=== PATIENT | female | born 1970 | race Caucasian/White ===

== ENCOUNTER 2024-12-10 14:28 | Outpatient (AMB) | payer BC, SELFPAY ==
[2024-12-10 15:09] VITALS: BP 129/72; PULSE 73; RESP 14; TEMP 36.2; O2SAT 97; BMI 21.0
--- NOTE | 2024-12-10 15:09 | AMB.GYNCLNOT ---
Vital Signs 12/10/24 15:09 Height 1.57 m Height Method Stated Weight 52.22 kg Weight Measurement Method Standing Scale BMI 21.0 BP 129/72 Blood Pressure Source Automatic Cuff Blood Pressure Location Right Upper Arm Position Sitting Respiration 14 Pulse 73 Pulse Source Monitor Temp 97.1 F Temp Source Oral Pulse Oximetry (%) 97 Oxygen Delivery Method Room Air Allergies/Home Meds Allergies & Medications Allergies No Known Allergies Allergy (Verified 12/10/24 15:10) Medication Reconciliation bupropion HCl 300 mg 24 hr tablet, extended release 300 mg PO QAM 12/10/24 [History Confirmed 12/10/24] levothyroxine 75 mcg tablet (Synthroid) 75 mcg PO QDAY 12/10/24 [History Confirmed 12/10/24] liothyronine 5 mcg tablet 5 mcg PO QDAY 12/10/24 [History Confirmed 12/10/24] progesterone micronized 200 mg capsule (Prometrium) 200 mg PO QHS 12/16/24 [History] Intake Visit Data Collection New Patient or Established: Established Patient (seen at [facility] within 3 years) Reason for Visit:: POSTMENOPAUSAL BLEEDING Seen by Clinical Staff ONLY (RN/MA): No 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 Do You Feel Safe at Home: Yes Authorities Contacted: N/A PCP or OBGYN visit in last 3 months: Yes Hx Now: No Are you currently on any form of Control: No Last menstrual period: 12/04/24 Pain Present Currently: No Pain Scale Used: Quiroga-Liu/Numerical Pain scale:: 0 Smoking Status Smoking Status: Never smoker 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 Currently she is on the estrogen patch 0.1 mg weekly and progesterone 200 mg p.o. nightly. 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 History of LEEP for abnormal Pap smears in past Recent hysteroscopy dilation curettage and MyoSure July 2024 Shoulder surgery 2014 for torn tendons Other Relevant History: Hypothyroidism. Anxiety. Questionnaires Covid-19 Vaccine Questionnaire Has patient been vacinated for Covid-19 Have you been vacinated for Covid-19: Yes PHQ-9 PHQ-2 Over the last 2 weeks, how often have you been bothered by any of the following problems? 1. Little interest or pleasure in doing things: not at all 2. Feeling down, depressed, or hopeless: not at all Total score: 0 PHQ-9 3. Trouble falling or staying asleep, or sleeping too much: Not at all 4. Feeling tired or having little energy: Not at all 5. Poor appetite or overeating: Not at all 6. Feeling bad about yourself - or that you are a failure or have let yourself or your family down: Not at all 7. Trouble concentrating on things, such as reading the newspaper or watching television: Not at all 8. Moving or speaking so slowly that other people could have noticed? - Or the opposite - being so fidgety or restless that you have been moving around a lot more than usual: not at all 9. Thoughts that you would be better off or of hurting yourself in some way: Not at all Total score: 0 Source: Developed by Drs. Maximo Alvarez, Carissa Fletcher, Sean Fernandez and colleagues, with an educational anai from [employer] 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 Salgado in in [place] at our office. She most recently was seeing a doctor in [place], Dr. Yanelis HANNA who took her to the OR for hysteroscopy dilation curettage and MyoSure 08/16/2024. Her pathology was benign. She is continues to have postmenopausal bleeding and was offered an ablation by the same doctor. Patient stated she looked online and this was not necessary recommended at her age. She presents for a second opinion. Of note in the past she was happy with an IUD. She is on HRT and is on a patch and Prometrium. She is on estrogen 0.1 mg weekly and Prometrium 200 nightly. Patient is amenable to trying another IUD. Of note she would like this in soon because her daughter is getting and she does not want having abnormal bleeding or cramping close to the wedding. She understands that this does not work that she will probably need a hysterectomy and that an ablation is not recommended in a 54-year-old. She just had a mammogram in August 10 she had a bone density in 2019 she had a colonoscopy in September 2023. She had an endometrial biopsy before her MyoSure. Her last Pap was in August 2024. Review of Systems Review of Systems Narrative Review of Systems: Patient reports postmenopausal bleeding. She is on estrogen and progesterone. She denies any severe pelvic pain or abnormal discharge. Exam General Limitations: no limitations General Appearance: alert, in no apparent distress, comfortable, cooperative, healthy appearing and well groomed Neck Neck exam: Present normal inspection, full ROM and trachea midline Chest Chest inspection: Present normal inspection and symmetric chest wall rise Resp Respiratory exam: Present normal lung sounds bilaterally Card Cardiovascular exam: Present regular rate, normal rhythm and normal heart sounds Psych Psychiatric exam: Present normal affect and normal mood Skin Skin exam: Present warm, dry, intact and normal color Office Procedures OB Clinic LOC & Office Proc's Nursing/Assessment Patient Status: Initial/New Patient OB Clinic Nursing Assessment: Medication Reconciliation, Update PMH in EMR and Vital Signs OB Clinic Coordination of Care: Complex Care and Chronic Disease 1-5, Consent,records obtained, informed consent, Education Simp Pt/Fam, Lab and Imaging orders, Results/Orders obtained and Staff clarify orders New Patient Charge New Patient Point Assignment: 1104 New Patient Point Charge: SPORTS TEAM MARKETING INTERN Level 3 ([id number]) Assessment & Plan Diagnosis / Problem List (1) Abnormal vaginal bleeding in postmenopausal patient: Status: Acute Assessment and Plan: Patient would like to try another IUD for her bleeding. Will authorize for this and call her once it is authorized. I will check one more ultrasound.
== END 2024-12-10 15:33 | disposition home or self-care (01) ==
LOC: HODSOBC 14:28
PROVIDERS: Supervising Provider Obstetrics & Gynecology; Visit Provider Obstetrics & Gynecology
DX: N95.0 Postmenopausal bleeding (principal); E03.9 Hypothyroidism, unspecified; Z79.890 Hormone replacement therapy
CPT/HCPCS: 99203; G0463

== ENCOUNTER 2025-02-19 08:17 | Outpatient (AMB) | payer BC, SELFPAY ==
--- NOTE | 2025-02-19 08:36 | AMB.GYNCLNOT ---
Vital Signs 02/19/25 08:37 Height 1.57 m Height Method Stated Weight 50.802 kg Weight Measurement Method Standing Scale BMI 20.6 BP 112/72 Blood Pressure Source Automatic Cuff Blood Pressure Location Right Upper Arm Position Sitting Respiration 17 Pulse 65 Pulse Source Monitor Temp 97.4 F Temp Source Temporal Artery Scan Pulse Oximetry (%) 99 Oxygen Delivery Method Room Air Allergies/Home Meds Allergies & Medications Allergies No Known Allergies Allergy (Verified 02/19/25 08:37) Medication Reconciliation bupropion HCl 300 mg 24 hr tablet, extended release 300 mg PO QAM 12/10/24 [History Confirmed 02/19/25] levothyroxine 75 mcg tablet (Synthroid) 75 mcg PO QDAY 12/10/24 [History Confirmed 02/19/25] liothyronine 5 mcg tablet 5 mcg PO QDAY 12/10/24 [History Confirmed 02/19/25] progesterone micronized 200 mg capsule (Prometrium) 200 mg PO QHS 12/16/24 [History Confirmed 02/19/25] Intake Visit Data Collection New Patient or Established: Established Patient (seen at [facility] within 3 years) Reason for Visit:: IUD INSERT Seen by Clinical Staff ONLY (RN/MA): No Ld Teacher Required: No Do You Feel Safe at Home: Yes Authorities Contacted: N/A PCP or OBGYN visit in last 3 months: Yes Date of Last PCP or OBGYN visit: 12/10/24 Hx Now: No Are you currently on any form of Control: No Pain Present Currently: No Pain Scale Used: Quiroga-Liu/Numerical Pain scale:: 0 Smoking Status Smoking Status: Never smoker 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 She currently is on estradiol patch 0.1 mg weekly and micronized progesterone 200 mg p.o. nightly but she continued continues to have abnormal uterine bleeding with this regimen. DISC RECORDIST: Past Medical History Past Medical History: Yes Hx Hypothyroidism and Yes Abnormal Papsmear Additional Operations/Hospitalizations (year & reason): Shoulder surgery Hysteroscopy dilation curettage MyoSure in August 10 Vaginal delivery x 1 History of abnormal Pap status post LEEP in the past Other Relevant History: No chronic medical problems including no diabetes hypertension or asthma. Questionnaires Covid-19 Vaccine Questionnaire Has patient been vacinated for Covid-19 Have you been vacinated for Covid-19: No PHQ-9 PHQ-2 Over the last 2 weeks, how often have you been bothered by any of the following problems? 1. Little interest or pleasure in doing things: not at all 2. Feeling down, depressed, or hopeless: not at all Total score: 0 PHQ-9 3. Trouble falling or staying asleep, or sleeping too much: Not at all 4. Feeling tired or having little energy: Not at all 5. Poor appetite or overeating: Not at all 6. Feeling bad about yourself - or that you are a failure or have let yourself or your family down: Not at all 7. Trouble concentrating on things, such as reading the newspaper or watching television: Not at all 8. Moving or speaking so slowly that other people could have noticed? - Or the opposite - being so fidgety or restless that you have been moving around a lot more than usual: not at all 9. Thoughts that you would be better off or of hurting yourself in some way: Not at all Total score: 0 If you checked off any problems, how difficult have these problems made it for you to do your work, take care of things at home, or get along with other people?: not difficult at all Source: Developed by Drs. Maximo Alvarez, Carissa Fletcher, Sean Fernandez and colleagues, with an educational anai from [employer]. 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 She has had an IUD in the past. Patient is amendable to trying an Mirena IUD for her postmenopausal vaginal bleeding. She had this completely worked up in July with a hysteroscopy dilation curettage and MyoSure. This was performed in [place]. Patient states the pathology was benign. As part of the workup she had an endometrial biopsy performed and stated this was extremely painful for her. She did however tolerate her IUD in the past. The same doctor who performed her hysteroscopy and MyoSure was offering her an ablation. The patient was questioning whether this was appropriate at 54 and I recommended an IUD versus a hysterectomy on her last visit. Patient is amendable to trying the IUD. She has read all the literature. She is consented for the procedure including the risk of bleeding infection perforation and laparoscopy should perforation occur. She also understands the risk of expulsion. The patient and is on an estradiol 0.1 mg patch and micronized progesterone 200 p.o. nightly. She is happy with her hormone replacement therapy except the fact that she still has postmenopausal bleeding. Exam General Limitations: no limitations General Appearance: alert, in no apparent distress, comfortable, cooperative and well groomed External exam: Present normal external exam Speculum exam: Present normal speculum exam Bimanual exam: Present normal bimanual exam (Anteverted uterus nontender) Office Procedures OB Clinic LOC & Office Proc's Nursing/Assessment Patient Status: Established Patient OB Clinic Nursing Assessment: Medication Reconciliation, Update PMH in EMR and Vital Signs OB Clinic Coordination of Care: Complex Care and Chronic Disease 1-5, Consent,records obtained, informed consent, Education Simp Pt/Fam and Staff clarify orders Established Patient Charge Established Patient Point Assignment: 85 Established Patient Point Charge: EP Level 3 (80-115) In Clinic Bedside tests Bedside HCG: Yes In Clinic Procedures Minor Surgical Procedure: Yes Results Urine HCG Urine HCG Negative Last Edit by Alyson Puga MA on 02/19/25 08:44 Assessment & Plan Diagnosis / Problem List (1) Abnormal vaginal bleeding in postmenopausal patient: Status: Acute Plan: The patient desires to continue on her HRT. She does not want to be evaluated with multiple ultrasounds and endometrial biopsies. I cannot place an IUD. She is past the age for an endometrial ablation is considered safe. Patient at this point desires to proceed with robotic hysterectomy. She would like to take as little time off work as possible. Will refer her to [place] to Dr. Sims for robotic hysterectomy. She had an endometrial biopsy and hysteroscopy MyoSure 7 months ago and per patient, the pathology was benign l. No signs of uterine cancer. I will refer her to Dr. Sims in [place] for robotic hysterectomy. 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 Patient's uterus was anteverted normal-sized and nontender. Speculum exam was performed and the cervix was prepped with Betadine and a single-tooth tenaculum was placed at 12 o'clock position. The patient tolerated this well. Despite multiple attempts to place a uterine sound I could not advance the sound past the endocervical os. It stopped at approximately 4 cm. I was unable to get into the uterine cavity after several attempts. I suspect that there was some scarring from patient's hysteroscopy and MyoSure that was performed in August 10. The IUD was not opened and the IUD was not attempted to be inserted at all as I could not sound her cavity. The procedure was then terminated. The tenaculum was removed and the tenaculum site noted hemostatic all instrumentation was removed in the patient's vagina and the patient tolerated the procedure well.
[2025-02-19 08:37] VITALS: BP 112/72; PULSE 65; RESP 17; TEMP 36.3; O2SAT 99; BMI 20.6
== END 2025-02-19 09:38 | disposition home or self-care (01) ==
LOC: HODSOBC 08:17
PROVIDERS: Supervising Provider Obstetrics & Gynecology; Visit Provider Obstetrics & Gynecology
DX: N95.0 Postmenopausal bleeding (principal); Z79.890 Hormone replacement therapy; Z98.890 Other specified postprocedural states
CPT/HCPCS: 58300; 81025; 99213; J7298; G0463